=== PATIENT | female | born 1955 | race Caucasian/White ===

== ENCOUNTER 2018-04-30 02:05 | Inpatient (IN) | payer OTHER ==
[~2018-04-30] VITALS: Ht 162.6 cm; Wt 149.9 kg
--- OUTSIDE RECORDS SUMMARY | 2018-04-30 02:08 | XMS REPORT | Clinical Summary ---
Author Author [facility] Address Unknown Phone Unavailable Care Team Providers Care Instructional Material Director Name Role Phone Antonio Lind MD PCP Allergies Comments Active Allergy Reactions Severity Noted Date Codeine 09/23/2016 Propoxyphene 09/23/2016 Hydrocodone 09/23/2016 Diazepam 09/23/2016 Medications No known medications Active Problems Not on file Social History Date Tobacco Use Types Packs/Day Years Used Never Assessed Sex Assigned at Date Recorded Not on file Industry Job Start Date Occupation Not on file Not on file Not on file Travel End Travel History Travel Start No recent travel history available. Last Filed Vital Signs Not on file Plan of Treatment Health Maintenance Due Date Last Done Comments CERVICAL CANCER SCREENING 1977 BREAST CANCER SCREENING 2006 COLON CANCER SCREENING 2006 SHINGLES VACCINES (#1) 2006 INFLUENZA VACCINE 09/11/2017 Results Not on fileafter 04/29/2017 Insurance Payer Benefit Subscriber ID Type Phone Address Plan / Group [facility] xxxxxxxxx HMO/PPO THCARE CHOICE/CHO ICE + [employer] [place]rent (Home) [place] [address] Advance Directives Patient has advance care planning documents on file. For more information, viktor forrest contact: Tao Campbell [address] [place] [address]
[2018-04-30] MEDS ORDERED: KETOROLAC TROMETHAMINE 30 MG/ML VIAL ONE (02:33)
[2018-04-30] MEDS ORDERED: LIDOCAINE 5% PATCH TP ONE (02:33)
[2018-04-30] MEDS ORDERED: ONDANSETRON HCL 4 MG ORAL DISINTEGRATING TAB ONE (02:33)
[2018-04-30] MEDS ORDERED: LIDOCAINE 5% PATCH TP STA (02:41)
[2018-04-30] MEDS ORDERED: TRAMADOL HCL 50 MG TAB PO ONE (02:45)
[2018-04-30] MEDS ORDERED: ACETAMINOPHEN 325 MG TAB PO ONE (02:45)
[2018-04-30] MEDS ORDERED: TRAMADOL/APAP 37.5MG-325MG TAB PO ONE (02:45)
--- NOTE | 2018-04-30 03:09 | Diagnostic Imaging Report ---
Exam: Left Knee Series. History: Left knee pain, status post fall Comparison: None. Findings: Exam is limited by soft tissue attenuation from patient's large body habitus. 3 views of the left knee. There is normal bone mineralization. Negative for acute, displaced fracture or dislocation. Tricompartmental degenerative joint disease with presence of marginal tibial and patellar osteophytes and joint space narrowing in the medial femoral tibial compartment. No abnormal soft tissue calcification or mass. Questionable tiny suprapatellar effusion. Impression: 1. Limited exam, as described above. No acute, displaced fracture or dislocation. 2. Tricompartmental degenerative joint disease with marginal osteophytes and joint space narrowing in the medial femoral tibial compartment. Questionable tiny suprapatellar effusion. Signed by: Dr. Kai Hall M.D. on 04/30/2018 3:06 AM
[2018-04-30] MEDS ORDERED: AMLODIPINE BESYL5 MG PO (03:28)
[2018-04-30] MEDS ORDERED: LISINOPRIL-HCT1 EACH PO (03:28)
[2018-04-30] MEDS ORDERED: ZOLPIDEM TARTRATE 5 MG TAB PO PRN (03:45)
[2018-04-30] MEDS ORDERED: ACETAMINOPHEN 325 MG TAB PO PRN (03:45)
[2018-04-30] MEDS ORDERED: CLONIDINE HCL 0.2 MG TAB PO PRN (03:45)
[2018-04-30] MEDS ORDERED: LACTULOSE SYRUP 20 GM/30 ML UDC PO PRN (03:45)
[2018-04-30] MEDS ORDERED: DIPHENHYDRAMINE HCL INJ 50 MG/ML VIAL IV PRN (03:45)
[2018-04-30] MEDS ORDERED: TRAMADOL HCL 50 MG TAB PO PRN (03:45)
[2018-04-30] MEDS ORDERED: ONDANSETRON HCL INJ 2MG/ML 2ML 2 MG/ML VIAL IV PRN ×2 (03:45→08:30)
[2018-04-30] MEDS ORDERED: ENALAPRILAT IV INJ 1.25 MG/ML VIAL IV PRN (03:45)
[2018-04-30] MEDS ORDERED: IBUPROFEN 200 MG TAB PO PRN (03:45)
[2018-04-30] MEDS ORDERED: DIPHENHYDRAMINE HCL 25 MG CAP PO PRN (03:45)
[2018-04-30 03:46] LABS: BASOPHILS % 0.3 % (0.0-1.0); EOSINOPHILS # (AUTO) 0.2 (0.0-0.4); EOSINOPHILS % 1.3 % (0.0-6.0); HEMATOCRIT 41.1 % (34.2-44.1); HEMOGLOBIN 13.5 g/dL (12.0-16.0); LYMPHOCYTES # (AUTO) 1.5 (1.0-3.2); LYMPHOCYTES % 12.5 % (18.0-39.1); MEAN CORPUSCULAR HEMOGLOBIN 29.3 pg (28-32); MEAN CORPUSCULAR HGB CONC 32.8 g/dL (31-35); MEAN CORPUSCULAR VOLUME 89.3 fL (81-99); MONOCYTES # (AUTO) 0.8 (0.2-0.8); MONOCYTES % 6.8 % (4.4-11.3); NEUTROPHILS # (AUTO) 9.3 (2.1-6.9); NEUTROPHILS % 78.6 % (38.7-80.0); PLATELET COUNT 312 x10e3/uL (140-360); RED CELL DISTRIBUTION WIDTH 13.4 % (11.7-14.4)
--- OUTSIDE RECORDS SUMMARY | 2018-04-30 03:53 | XMS REPORT | Clinical Summary ---
Author Author [facility] Address Unknown Phone Unavailable Care Team Providers Care Studio Sales Associate Name Role Phone Antonio Lind MD PCP [...] ID Type Phone Address Plan / Group [facility] xxxxxxxxx HMO/PPO THCARE CHOICE/CHO ICE + [address] [place] (Home) [place] [address] Advance Directives Patient has advance care planning documents on file. For more information, viktor forrest contact: Tao Campbell [address] [place] [address]
--- OUTSIDE RECORDS SUMMARY | 2018-04-30 03:53 | XMS REPORT ---
[facility] Address Unknown Phone Unavailable Care Team Providers Care Medical Doctor Name Role Phone Elfego LONG Unavailable Unavailable Problems This patient has no known problems. Allergies, Adverse Reactions, Alerts This patient has no known allergies or adverse reactions. Medications This patient has no known medications. Results Test Description Test Time Test Comments Text Results Atomic Results Result Comments KNEE LEFT THREE VIEWS 2018-04-30 03:04:00 [place] [address] Patient Name: ANGEL FRANKEL MR #: [id number] : 1955 Age/Sex: 63/F Req #: [id number] Adm Physician: Ordered by: YANET LONG MD Report #: [id number] Location: ER Room/Bed: Procedure: [id number] DX/KNEE LEFT THREE VIEWS Exam Date: 04/30/18 Exam Time: 0230 REPORT STATUS: Signed Exam: Left Knee Series. History: Left knee vale n, status post fall Comparison: None. Findings: Exam is limited by soft tissue attenuation from patient's large body habitus. 3 views of the left knee. There is normal bone mineralization. Negative for acute, displaced fracture or dislocation. Tricompartmental degenerative joint disease with presence of marginal tibial and patellar osteophytes and joint space narrowing in the medial femoral tibial compartment. No abnormal soft tissue calcification or mass. Questionable tiny suprapatellar effusion. Impression: 1. Limited exam, as described above. No acute, displaced fracture or dislocation. 2. Tricompartmental degenerative joint disease with marginal osteophytes and joint space narrowing in the medial femoral tibial compartment. Questionable tiny suprapatellar effusion. Signed by: Dr. Leandra Hall M.D. on 04/30/2018 3:06 AM Dictated By: LEANDRA HALL MD 5 Transcribed By: HUE on 04/30/18305 COPY TO: YANET LONG MD
[2018-04-30 04:05] LABS: BILIRUBIN,URINE NEGATIVE (NEGATIVE); CLARITY,URINE CLOUDY (CLEAR); COLOR,URINE YELLOW (YELLOW); KETONES,URINE TRACE (NEGATIVE); LEUKOCYTE ESTERASE ,URINE NEGATIVE (NEGATIVE); NITRITE,URINE NEGATIVE (NEGATIVE); PROTEIN,URINE DIPSTICK TRACE (NEGATIVE); URINE UROBILINOGEN 0.2 mg/dL (0.2 - 1)
--- NOTE | 2018-04-30 04:10 | NUR ---
Patient arrived on the floor from ER at 0405 due to left distal femur fracture. RN performed the comprehensive assessment on the patient. Alert and oriented x 3 with no pain. Patient received Tramadol and Toradol IV from ER. Reported 0/10 for left knee. Left knee is placed in immobilizer. Dr. Garber is the attending physician who will contact ortho for consult. Monitor patient for pain.
[2018-04-30 04:15] VITALS: BP 155/68
[2018-04-30 04:17] LABS: BACTERIA,URINE FEW /HPF; EPITHELIAL CELLS,URINE FEW /LPF; RBC,URINE 0-5 /HPF (0-5); WBC,URINE (MAN) 0-5 /HPF (0-5)
[2018-04-30 04:18] LABS: MUCUS,URINE MANY (RARE)
[2018-04-30 04:23] LABS: ALANINE AMINOTRANSFERASE 14 IU/L (0-55); ALBUMIN 3.8 g/dL (3.5-5.0); ALBUMIN/GLOBULIN RATIO 1.1 (0.8-2.0); ALKALINE PHOSPHATASE 78 IU/L (40-150); ANION GAP 13.3 mmol/L (8-16); BLOOD UREA NITROGEN 26 mg/dL (7-26); BUN/CREATININE RATIO 31 (6-25); CALCIUM 9.2 mg/dL (8.4-10.2); CARBON DIOXIDE 27 mmol/L (22-29); CHLORIDE 101 mmol/L (98-107); CREATININE, SERUM 0.85 mg/dL (0.57-1.11); EST GLOMERULAR FILTRATION RATE > 60 ML/MIN (60-); GLUCOSE 143 mg/dL (74-118); POTASSIUM 3.3 mmol/L (3.5-5.1); SODIUM 138 mmol/L (136-145)
[2018-04-30] MEDS ORDERED: INFLUENZA VIRUS VAC SPLIT INJ 0.5 ML SYR IM SCH (04:59)
[2018-04-30 05:02] VITALS: BP 155/68
--- NOTE | 2018-04-30 05:02 | Diagnostic Imaging Report ---
EXAMINATION: CT of left knee, without contrast. TECHNIQUE: Axial spiral CT images of the left knee were performed from the mid femur to the proximal to mid tibia. No intravenous contrast was administered. Coronal and sagittal reformatted images in bone and soft tissue windows were obtained. CLINICAL HISTORY: Left knee pain after fall COMPARISON: Knee plain films 04/30/2018 FINDINGS: Exam limited by soft tissue attenuation from patient's large body habitus. No acute, displaced fracture or dislocation. Tricompartmental degenerative joint disease with marginal tibial/femoral and patellar osteophytosis, mild medial patellofemoral joint space narrowing. Moderate fat stranding in the subcutaneous tissues anterior and lateral to the proximal tibia and patella, with a crescentic shape high density collection in the subcutaneous tissue surrounding the proximal tibia, with a measured density of 50-65 HU, likely representing a hematoma. Mild anterior skin thickening/edema. No suprapatellar effusion. IMPRESSION: 1. No acute, displaced fracture or dislocation 2. Moderate subcutaneous fat stranding anterior and lateral to the proximal tibia and patella with an anterior subcutaneous hematoma. 3. Tricompartmental degenerative joint disease. Signed by: Dr. Kai Hall M.D. on 04/30/2018 4:59 AM
[2018-04-30] MEDS ORDERED: ACETAMINOPHEN325 M1 PO (05:03)
[2018-04-30 08:00] VITALS: BP 158/74
[2018-04-30] MEDS ORDERED: HYDRALAZINE HCL 20 MG/ML VIAL IV PRN (08:30)
[2018-04-30] MEDS ORDERED: POTASSIUM CHLORIDE 20 MEQ TAB CR PO NR (08:30)
[2018-04-30] MEDS ORDERED: ULTRAM 50MG50 MG PO (08:53)
[2018-04-30] MEDS ORDERED: LISINOPRIL 20 MG TAB PO SCH (09:00)
[2018-04-30] MEDS ORDERED: AMLODIPINE BESYLATE 5 MG TAB PO SCH (09:00)
[2018-04-30] MEDS ORDERED: HYDROCHLOROTHIAZIDE 25 MG TAB PO SCH (09:00)
--- NOTE | 2018-04-30 11:22 | Consultation ---
DATE OF CONSULTATION: 04/30/2018 CHIEF COMPLAINT: Left knee pain. HISTORY OF PRESENT ILLNESS: The patient is a 63-year-old lady, who was walking late last night. She tripped over a toy of her grandchild. She fell and landed on her left knee. She noted immediate onset of pain. She was brought into the emergency room, where x-rays and a CT scan were taken. She was placed into a splint and admitted. PAST MEDICAL HISTORY: Hypertension. PREVIOUS SURGERIES: Back surgery, right knee replacement, neck fusion, removal of melanoma, and appendectomy. MEDICATIONS: See medication reconciliation list. ALLERGIES: MULTIPLE, SEE ADMISSION H AND P. SOCIAL HISTORY: She lives at home with her . She does not smoke or drink. She typically walks independently. She is retired. PHYSICAL EXAMINATION: GENERAL: She is awake, alert, and oriented. She is expressive about her level of discomfort, but does not appear to be in any distress. She has a BMI of 56. EXTREMITIES: Her left lower extremity was in a splint. This was removed. There were no puncture wounds or abrasions. There was some minor bruising over the anterior aspect of the left knee. She complains of pain with light touch. Exam is compromised secondary to her morbid obesity and symptoms in excess of objective findings. Distal neurovascular exam is grossly normal though she complains of some subjective numbness on the lateral aspect of her knee. IMAGING: X-rays and a CT scan show advanced arthritis of her left knee, but no evidence of an acute fracture or structural damage. IMPRESSION: 1. Contusion/strain, left knee. 2. Extreme morbid obesity. The findings were discussed with the patient. There is no structural bone damage to the left knee. She can weight bear as tolerated with a walker. She has underlying severe arthritis. She is not a candidate for knee replacement. She will need to pursue the option of bariatric surgery or a multidisciplinary weight loss program. She states that she has been treated with a topical cream for her numbness and tingling in her right leg. She would like to have a prescription for this nerve cream. She is presently wearing a lidocaine patch. We will see if we can get authorization for topical creams and we will have those sent to her. She will follow up in our office on an as-needed basis. Thank you for the consultation. Domo Gaets MD DR/DUGLAS /[id number]
--- NOTE | 2018-04-30 11:51 | NUR ---
[facility] D/C AT THIS TIME PER ORDERS.
--- NOTE | 2018-04-30 12:15 | NUR ---
PT VOIDED AT THIS TIME WITH NO DIFFICULTY.
--- NOTE | 2018-04-30 12:58 | NUR ---
PT REFUSES FLU VACCINE. STATES SHE DOES NOT WANT IT.
[2018-04-30 13:03] VITALS: BP 136/74
[2018-04-30] MEDS ORDERED: FAMOTIDINE 20 MG TAB PO SCH (16:30)
--- NOTE | 2018-04-30 19:55 | Discharge Summary ---
ADMISSION DIAGNOSES: Left knee pain status post fall, hypertension, hypokalemia, and morbid obesity. DISCHARGE DIAGNOSES: Left knee pain status post fall, hypertension, hypokalemia, morbid obesity; degenerative joint disease, rule out fracture. HISTORY: The patient has a history of hypertension, degenerative joint disease/OA, melanoma and carcinoma on the neck. SURGICAL HISTORY: Right knee surgery, back surgery, neck fusion, lap band, and an appendectomy. FAMILY HISTORY: The patient's cousins have diabetes. The patient's uncle had a stroke. The patient's maternal and paternal grandmas had cancer. SOCIAL HISTORY: Noncontributory. The patient admits to smoking for about 3 years around 30 years ago and has not smoked since. HOSPITAL COURSE: A 63-year-old female was moving toys yesterday when she stepped on a part of the toy and slid across the laminate floor onto her left knee. She was unable to get herself up, so EMS was called. She describes the pain as a constant burn. She has not attempted to walk since the fall. Pain is improved with the lidocaine patch. On admission, x-ray of the left knee showed no acute displaced fracture or dislocation. Tricompartmental degenerative joint disease with marginal osteophytes and joint narrowing in the medial femoral tibial compartment. CT of the left knee again showed no fracture or dislocation, moderate subcu fat stranding anterior and lateral to the proximal tibia and patella with an anterior subcu hematoma, degenerative joint disease. Ortho was consulted, who said that she may bear weight with a walker. She is not a candidate for knee replacement or any other surgical options at this time. She will follow up with Ortho in the office as discussed. The patient is ambulating in the hallway well with physical therapy. She will discharge home and follow up with primary care in 1-2 weeks and Ortho prescription for tramadol, which seems to be working. Vital signs are stable, patient afebrile. The patient understands discharge instructions and agrees to plan. Dictated by Emilia Mendoza NP MD RAMON Warner/MODL /[id number]
== END 2018-04-30 13:38 | disposition home or self-care (01) | DRG 605 ==
LOC: ER 02:05 → ERHOLD 03:50 → MED/SURG 04:12
PROVIDERS: ADMIT Internal Medicine; ATTEND Internal Medicine
DX: S80.02XA Contusion of left knee, initial encounter (principal); Z68.43 Body mass index [BMI] 50.0-59.9, adult; W18.31XA Fall on same level due to stepping on an object, initial encounter; Y93.E9 Activity, other interior property and clothing maintenance; Y92.009 Unspecified place in unspecified non-institutional (private) residence as the place of occurrence of the external cause; E66.01 Morbid (severe) obesity due to excess calories; I10 Essential (primary) hypertension; M17.12 Unilateral primary osteoarthritis, left knee; Z87.891 Personal history of nicotine dependence; E87.6 Hypokalemia
CPT/HCPCS: 36415; 51700; 80053; 81001; 85025; 87086; 97139; 99284; J1885